=== PATIENT | male | born 1960 | race Caucasian/White ===

== ENCOUNTER 2016-07-26 09:30 | Emergency (ER) | payer OTHER ==
[~2016-07-26] VITALS: Ht 177.8 cm; Wt 72.7 kg
[~2016-07-26 09:30] MED LIST: ASPIR-TRIN325 M1 PO; DULCOLAX5 MG PO; NOHOMEMEDS; PRILOSEC20 MG PO; SENOKOT S,PE1 TABLET PO; THERAGRAN1 TABLET PO; Tylenol Regular Stre PO; WELLBUTRIN XL150 MG PO; Zocor PO
[2016-07-26 09:57] LABS: POINT-OF-CARE METER ID UU13113778
[2016-07-26 10:58] LABS: HEMATOCRIT 40.9 % (38.0-50.0); MCH 28.6 PG (29.0-34.0); MCHC 32.3 G/DL (30.0-36.0); MCV 88.5 FL (86-99); MEAN PLAT.VOLUME 10.2 uM^3 (9.0-12.4); PLATELET COUNT 227 K/uL (156-360); RBC DIS.WIDTH-CV 14.3 % (11.8-14.6); RBC DIS.WIDTH-SD 45.5 % (39-53); RED BLOOD COUNT 4.62 M/uL (4.00-5.50); WHITE BLOOD COUNT 8.4 K/uL (4.1-10.2)
[2016-07-26 11:08] LABS: CHLORIDE 106 mEq/L (99-109); POTASSIUM 4.5 mEq/L (3.7-5.4); SODIUM 141 mEq/L (136-147)
[2016-07-26 11:09] LABS: GLUCOSE 105 mg/dL (70-99)
[2016-07-26 11:11] LABS: ANION GAP 10 MEQ/L (2-14)
[2016-07-26 11:13] LABS: GFR ESTIMATE (CALCULATED) 37 mL/min/
[2016-07-26 11:14] LABS: UREA NITROGEN (BUN) 41 mg/dL (9-23)
[2016-07-26 17:55] VITALS: BP 00/0
== END 2016-07-26 17:59 | disposition home or self-care (01) ==
LOC: EME 09:30
DX: R25.1 Tremor, unspecified (principal); E86.0 Dehydration; F17.200 Nicotine dependence, unspecified, uncomplicated; G89.29 Other chronic pain; E11.9 Type 2 diabetes mellitus without complications; I10 Essential (primary) hypertension; G43.909 Migraine, unspecified, not intractable, without status migrainosus; Z86.73 Personal history of transient ischemic attack (TIA), and cerebral infarction without residual deficits; R42 Dizziness and giddiness
CPT/HCPCS: 70450; 71020; 80048; 82948; 85027; 93005; 99281; 99285

== ENCOUNTER 2017-04-24 17:38 | Emergency (ER) | payer OTHER ==
[~2017-04-24] VITALS: Ht 177.8 cm; Wt 70.4 kg
[2017-04-24 18:40] LABS: HEMATOCRIT 38.5 % (38.0-50.0); HEMOGLOBIN 12.8 G/DL (12.5-16.6); MCH 30.3 PG (29.0-34.0); MCHC 33.2 G/DL (30.0-36.0); PLATELET COUNT 178 K/uL (156-360); RBC DIS.WIDTH-CV 13.4 % (11.8-14.6); RBC DIS.WIDTH-SD 44.8 % (39-53); RED BLOOD COUNT 4.23 M/uL (4.00-5.50); WHITE BLOOD COUNT 8.3 K/uL (4.1-10.2)
[2017-04-24 18:52] LABS: CHLORIDE 105 mEq/L (99-109); POTASSIUM 4.7 mEq/L (3.7-5.4); SODIUM 141 mEq/L (136-147)
[2017-04-24 18:54] LABS: GLUCOSE 85 mg/dL (70-99)
[2017-04-24 18:58] LABS: CREATININE 1.4 mg/dL (0.6-1.3); GFR ESTIMATE (CALCULATED) 56 mL/min/ (58.99-99999)
[2017-04-24 18:59] LABS: UREA NITROGEN (BUN) 23 mg/dL (9-23)
[2017-04-24 22:05] LABS: APPEARANCE CLEAR ((CLEAR)); BILIRUBIN NEGATIVE; BLOOD NEGATIVE; COLOR YELLOW ((YELLOW)); GLUCOSE (STRIP) NEGATIVE; KETONES NEGATIVE; LEUKOCYTES NEGATIVE; NITRITE NEGATIVE; PROTEIN (STRIP) NEGATIVE; SPECIFIC GRAVITY 1.008 (1.000-1.030); UCUL ADDED? NO; UROBILINOGEN 0.2 MG/DL (0.2-1.0)
[2017-04-24 22:19] LABS: AMPHETAMINE NEGATIVE (500 ng/mL); BARBITURATES NEGATIVE (200 ng/mL); BENZODIAZEPINES NEGATIVE (150 ng/mL); BUPRENORPHINE NEGATIVE (10 ng/mL); COCAINE NEGATIVE (150 ng/mL); METHADONE NEGATIVE (200 ng/mL); METHAMPHETAMINE NEGATIVE (500 ng/mL); OPIATES (MORPHINE) NEGATIVE (100 ng/mL); OXYCODONE NEGATIVE (100 ng/mL); PHENCYCLIDINE NEGATIVE (25 ng/mL); PROPOXYPHENE NEGATIVE (300 ng/mL); THC CANNABINOIDS NEGATIVE (50 ng/mL); TRICYCLIC ANTIDEPRESSANTS NEGATIVE (300 ng/mL)
[2017-04-24 23:25] VITALS: BP 136/65
== END 2017-04-24 23:25 | disposition home or self-care (01) ==
LOC: EME 17:38
PROVIDERS: Physician Assistant
DX: G25.0 Essential tremor (principal); G20 Parkinson's disease; I69.351 Hemiplegia and hemiparesis following cerebral infarction affecting right dominant side; E11.9 Type 2 diabetes mellitus without complications; I10 Essential (primary) hypertension; F17.200 Nicotine dependence, unspecified, uncomplicated; F41.9 Anxiety disorder, unspecified
CPT/HCPCS: 80048; 81003; 85027; 99281; 99284; J2060

== ENCOUNTER 2017-05-24 09:46 | Inpatient (IN) | payer OTHER ==
[~2017-05-24] VITALS: Ht 177.8 cm; Wt 66.4 kg
[2017-05-24 10:19] LABS: BASOPHIL (%) 0.5 % (0-1); BASOPHIL COUNT 0.1 K/uL (0-0.1); EOSINOPHIL (%) 2.4 % (0-5); EOSINOPHIL COUNT 0.3 K/uL (0-0.3); HEMATOCRIT 40.9 % (38.0-50.0); HEMOGLOBIN 13.7 G/DL (12.5-16.6); IMMATURE GRANULOCYTE (%) 0.3 % (0.0-0.7); LYMPHOCYTE (%) 13.8 % (15-42); LYMPHOCYTE COUNT 1.6 K/uL (1.0-2.8); MCH 30.2 PG (29.0-34.0); MCHC 33.5 G/DL (30.0-36.0); MCV 90.1 FL (86-99); MONOCYTE (%) 7.2 % (3-12); MONOCYTE COUNT 0.8 K/uL (0-0.8); NEUTROPHIL (%) 75.8 % (45-76); NEUTROPHIL COUNT 8.6 K/uL (1.8-6.4); PLATELET COUNT 205 K/uL (156-360); RBC DIS.WIDTH-CV 13.1 % (11.8-14.6); RBC DIS.WIDTH-SD 42.9 % (39-53); RED BLOOD COUNT 4.54 M/uL (4.00-5.50); WHITE BLOOD COUNT 11.3 K/uL (4.1-10.2)
[2017-05-24 10:25] LABS: INTER. NORMALIZED RATIO 0.9
[2017-05-24 10:28] LABS: PTT 32.1 SEC (25-37)
[2017-05-24 10:32] LABS: AMYLASE 47 IU/L (1-118); CHLORIDE 105 mEq/L (99-109); POTASSIUM 4.6 mEq/L (3.7-5.4); SODIUM 140 mEq/L (136-147)
[2017-05-24 10:34] LABS: GLUCOSE 112 mg/dL (70-99)
[2017-05-24 10:37] LABS: SERUM ETHYL ALCOHOL < 10 mg/dL
[2017-05-24 10:38] LABS: CREATININE 1.8 mg/dL (0.6-1.3); GFR ESTIMATE (CALCULATED) 42 mL/min/ (58.99-99999)
[2017-05-24 10:39] LABS: TROP-I INTERPRETATION NEGATIVE; TROPONIN-I < 0.01 ng/mL (0.0-0.30); UREA NITROGEN (BUN) 35 mg/dL (9-23)
[2017-05-24 10:41] LABS: LIPASE 25 U/L (1.0-51.0)
[2017-05-24] MEDS ORDERED: INCRUSE ELLI62.5 MCG IH (12:14)
[2017-05-24] MEDS ORDERED: BACLOFEN10 MG PO (12:15)
[2017-05-24] MEDS ORDERED: PRAVACHOL20 MG PO (12:15)
[2017-05-24] MEDS ORDERED: PROTONIX40 MG PO (12:15)
[2017-05-24] MEDS ORDERED: METFORMIN HCL500 MG PO (12:15)
[2017-05-24] MEDS ORDERED: VENTOLIN HFA18 GM IH (12:16)
[2017-05-24] MEDS ORDERED: RANITIDINE HCL300 MG PO (12:16)
[2017-05-24] MEDS ORDERED: LYRICA75 MG PO (12:16)
[2017-05-24] MEDS ORDERED: LABETALOL HCL100 MG PO (12:16)
[2017-05-24] MEDS ORDERED: BENZTROPINE MESY1 MG PO (12:17)
[2017-05-24 13:31] LABS: HDL CHOLESTEROL 44 MG/DL (Desirable>=40); LDL CHOLESTEROL 74 mg/dL (Desirable<100); NON-HDL CHOLESTEROL 92 mg/dL (Desirable<160); TOTAL CHOLESTEROL 136 mg/dL (Desirable<200); TRIGLYCERIDES 89 MG/DL (Normal: <150)
[2017-05-24 14:28] LABS: HEMOGLOBIN A1c (GLYCOHEMOGLOB) 5.9 % (Below 5.7)
[2017-05-24 15:20] LABS: BASE EXCESS 0.3 mEq/L (-3 to +3); BICARBONATE 25.4 mEq/L (22-26); CARBOXY HGB 1.8 % (0-5); COMMENTS - BLOOD GASES A+C+; DEVICE RA; PCO2 42 mm Hg (35-45); PO2 76 mm Hg (80-100); SITE RR; pH 7.39 (7.35-7.45)
[2017-05-24 18:34] VITALS: BP 130/72
[2017-05-24 19:10] VITALS: BP 146/73
[2017-05-24 23:15] VITALS: BP 105/52
[2017-05-25 03:00] VITALS: BP 161/86
[2017-05-25 08:31] VITALS: BP 130/95
[2017-05-25 12:00] VITALS: BP 147/72
[2017-05-25 13:50] LABS: APPEARANCE CLEAR ((CLEAR)); BILIRUBIN NEGATIVE; BLOOD SMALL; COLOR YELLOW ((YELLOW)); GLUCOSE (STRIP) NEGATIVE; KETONES NEGATIVE; LEUKOCYTES NEGATIVE; NITRITE NEGATIVE; PROTEIN (STRIP) NEGATIVE; SPECIFIC GRAVITY 1.009 (1.000-1.030); UROBILINOGEN 0.2 MG/DL (0.2-1.0)
[2017-05-25 14:14] LABS: BACTERIA NONE SEEN /HPF; EPITHELIAL CELLS NONE SEEN /HPF; MUCUS TRACE /LPF; RED BLOOD CELLS 0-5 /HPF (0-5); UCUL ADDED? NO; WHITE BLOOD CELLS 0-5 /HPF (0-5)
[2017-05-25 14:59] LABS: D-DIMER ELISA < 150.00 ng/mLDDU (<230)
[2017-05-25 15:13] VITALS: BP 154/74
[2017-05-25 19:10] VITALS: BP 164/84
[2017-05-25 20:18] LABS: BENZODIAZEPINES, URINE SCREEN Negative (200 ng/mL)
[2017-05-25 23:59] VITALS: BP 139/76
[2017-05-26 03:00] VITALS: BP 114/70
[2017-05-26 04:38] LABS: BASOPHIL (%) 0.6 % (0-1); BASOPHIL COUNT 0.1 K/uL (0-0.1); EOSINOPHIL (%) 4.1 % (0-5); EOSINOPHIL COUNT 0.3 K/uL (0-0.3); HEMATOCRIT 36.1 % (38.0-50.0); HEMOGLOBIN 12.3 G/DL (12.5-16.6); IMMATURE GRANULOCYTE (%) 0.2 % (0.0-0.7); LYMPHOCYTE (%) 20.5 % (15-42); LYMPHOCYTE COUNT 1.7 K/uL (1.0-2.8); MCH 30.2 PG (29.0-34.0); MCHC 34.1 G/DL (30.0-36.0); MCV 88.7 FL (86-99); MONOCYTE (%) 10.3 % (3-12); MONOCYTE COUNT 0.9 K/uL (0-0.8); NEUTROPHIL (%) 64.3 % (45-76); NEUTROPHIL COUNT 5.4 K/uL (1.8-6.4); PLATELET COUNT 174 K/uL (156-360); RBC DIS.WIDTH-CV 13.1 % (11.8-14.6); RBC DIS.WIDTH-SD 42.6 % (39-53); RED BLOOD COUNT 4.07 M/uL (4.00-5.50); WHITE BLOOD COUNT 8.4 K/uL (4.1-10.2)
[2017-05-26 04:57] LABS: ALBUMIN 3.9 g/dL (3.2-4.8); CHLORIDE 108 mEq/L (99-109); POTASSIUM 4.5 mEq/L (3.7-5.4); SODIUM 138 mEq/L (136-147)
[2017-05-26 05:00] LABS: GLUCOSE 114 mg/dL (70-99); TOTAL PROTEIN 5.8 g/dL (6.4-8.3)
[2017-05-26 05:02] LABS: TOTAL BILIRUBIN 0.4 mg/dL (0.0-1.0)
[2017-05-26 05:03] LABS: ALKALINE PHOSPHATASE 66 IU/L (3-129)
[2017-05-26 05:04] LABS: UREA NITROGEN (BUN) 22 mg/dL (9-23)
[2017-05-26 05:05] LABS: AST (GOT) 11 IU/L (2-34); CREATININE 1.3 mg/dL (0.6-1.3); GFR ESTIMATE (CALCULATED) > 59 mL/min/ (58.99-99999)
[2017-05-26 05:06] LABS: ALT (GPT) 7 IU/L (3-49)
[2017-05-26 09:00] VITALS: BP 131/68
[2017-05-26 17:43] VITALS: BP 138/71
[2017-05-26 21:00] VITALS: BP 134/81
[2017-05-26 22:50] VITALS: BP 113/58
[2017-05-27 00:09] VITALS: BP 120/74
[2017-05-27 04:12] VITALS: BP 133/65
[2017-05-27 08:18] VITALS: BP 137/71
[2017-05-27] MEDS ORDERED: NOVOLOG 10100 UNITS/ SC (11:54)
== END 2017-05-27 15:00 | DRG 91 ==
LOC: EME 09:46 → 4EAST 11:06 → EDOF 11:06 → ENRESERV 11:07 → EDOF 15:41 → ENRESERV 15:41 → 4EAST 17:43 → ENRESERV 05-26 23:08 → 5SOUTH 05-27 00:01
PROVIDERS: Emergency Medicine Emergency Medical Services; Hospitalist
PROC: 5A09357 Assistance with Respiratory Ventilation, Less than 24 Consecutive Hours, Continuous Positive Airway Pressure (ICD-10-PCS; principal; 2017-05-24)
DX: G25.2 Other specified forms of tremor (principal); J96.01 Acute respiratory failure with hypoxia; F41.9 Anxiety disorder, unspecified; I12.9 Hypertensive chronic kidney disease with stage 1 through stage 4 chronic kidney disease, or unspecified chronic kidney disease; E11.22 Type 2 diabetes mellitus with diabetic chronic kidney disease; N18.2 Chronic kidney disease, stage 2 (mild); G47.30 Sleep apnea, unspecified; F03.90 Unspecified dementia, unspecified severity, without behavioral disturbance, psychotic disturbance, mood disturbance, and anxiety; J01.90 Acute sinusitis, unspecified; R63.4 Abnormal weight loss; Z68.1 Body mass index [BMI] 19.9 or less, adult; R41.82 Altered mental status, unspecified; R47.1 Dysarthria and anarthria; G43.909 Migraine, unspecified, not intractable, without status migrainosus; R01.1 Cardiac murmur, unspecified; F17.200 Nicotine dependence, unspecified, uncomplicated; Z86.73 Personal history of transient ischemic attack (TIA), and cerebral infarction without residual deficits
CPT/HCPCS: 36600; 70450; 70551; 71045; 80048; 80053; 80061; 80306 90; 81003; 82150; 82803; 82948; 83036; 83690; 84484; 85025; 85379; 85610; 85730; 86850; 86900; 86901; 92523 GN; 92610 GN; 93005; 93306; 93880; 94640; 94640 76; 94660; 95819; 99281; 99285; G0480; J1644; J1815; J2060; J7030